=== PATIENT | male | born 2000 | race Caucasian/White ===

== ENCOUNTER 2025-04-21 18:28 | Emergency (ER) | payer OTHER, SELFPAY ==
[2025-04-21 18:50] VITALS: BP 133/75; PULSE 81; RESP 18; TEMP 36.6; O2SAT 100
--- NOTE | 2025-04-21 19:16 | ED.GENADULT ---
HPI - General Adult General Chief complaint: Back Pain/Injury Stated complaint: Back Pain Time Seen by Provider: 04/21/25 19:16 Source: patient, RN notes reviewed and old records reviewed Mode of arrival: ambulatory Limitations: no limitations History of Present Illness HPI narrative: 24-year-old male presents to the [facility] with back pain for 2 years if he stands too long and right shoulder pain whenever he does a lot of repetitive motion. Patient reports he has had generalized back pain for 2 years if he stands too long at work. Denies any trauma. No bruising, swelling noted. No rashes. No midline tenderness. No loss or retention of bowel or bladder. Patient states that he was working today when he started feeling soreness in the lateral shoulder, reports doing a lot of repetitive motion. Denies any trauma. No bruising or swelling noted. Has full range of motion. Positive radial pulse. 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 Full range of motion of you elbow and wrist. Has not seek medical attention nor has taken anything for his discomfort over the last 2 years for his back Onset (ago): year(s) (2) Treatments prior to arrival: none Related Data Allergies Allergy/AdvReac Type Severity Reaction Status Date / Time No Known Allergies Allergy Verified 04/21/25 18:54 Review of Systems Review of Systems: All systems reviewed & are unremarkable except as noted in HPI and below Constitutional: Constitutional: Reports no additional constitutional complaints Musculoskeletal: Musculoskeletal: Reports as per HPI, Reports back pain, Reports arthralgias, Denies joint swelling, Denies neck pain and Denies numbness Integumentary/Breasts: Skin/Breast: Reports system reviewed and no additional complaints, except as docu PMFSH Comments At the time of my signature, I reviewed and agree with the nursing past medical, surgical, social, and family history. There is no relevant family history pertinent to the patient complaint. Exam Const: General: cooperative, healthy appearing, comfortable, no acute distress, well developed, alert and well nourished Nutritional Appearance: well nourished and obese Orientation/consciousness: patient oriented x3 Limitations: no limitations HENMT: Head: normal to inspection Eyes: General: appearance normal, both eyes and all related structures Alignment and Position: alignment normal Neck: Neck: normal visual inspection, full ROM, no lymphadenopathy and no meningeal signs Chest: Chest palpation & inspection: normal inspection of the chest Resp: Effort & Inspection: normal respiratory effort and able to speak in complete sentences Auscultation: clear to auscultation bilaterally, no crackles, no rales, no rhonchi and no wheezes Cardio: Rate: regular rate Back/Spine/Pelvis: Back: no CVA tenderness, No erythema, No warmth, No ecchymosis and No back tenderness Cervical Spine: normal cervical lordosis, cervical ROM normal, No cervical muscular tenderness and No Cervical spine tenderness Thoracic/Lumbar Spine: thoracic and lumbar spine normal to inspection, No paraspinal muscle tenderness, No thoracic spinal tenderness and No lumbar spinal tenderness Skin: General skin exam: normal color and no rashes or lesions noted Neuro: General: patient oriented x3, gait normal, moves all extremities and no meningeal signs Cognition (Neuro): normal cognition Speech: normal speech Gait exam (Neuro): Normal gait present Extrem: General: normal to inspection, full ROM, capillary refill normal and normal gait Right upper extremity: shoulder/upper arm tenderness and normal ROM; no swelling, no abrasions, no lacerations, no ecchymosis, no crepitus, no foreign bodies, no penetrating wound, no deformity and no unusual warmth, elbow/forearm normal to inspection and normal ROM; no tenderness, wrist normal to inspection and normal ROM; no tenderness and Extremity exam: right hand normal to inspection, normal capillary refill, vascular exam radial pulse present and normal capillary refill, normal ROM of fingers and no swelling; no tenderness and no ecchymosis Psych: Appearance: grossly normal and well kempt Mental Status: mental status grossly normal Speech and movement: Normal speech and movement present and Clear speech present Affect: normal affect Attitude: cooperative Course Course Level of Care: Express Care Visit Vital Signs Vital signs: Vital Signs Temperature 97.9 F 04/21/25 18:50 Pulse Rate 81 04/21/25 18:50 Respiratory Rate 18 04/21/25 18:50 Blood Pressure 133/75 04/21/25 18:50 Pulse Oximetry 100 04/21/25 18:50 Oxygen Delivery Room Air 04/21/25 18:50 Temperature 97.9 F 04/21/25 18:50 Pulse Rate 81 04/21/25 18:50 Respiratory Rate 18 04/21/25 18:50 Blood Pressure 133/75 04/21/25 18:50 Pulse Oximetry 100 04/21/25 18:50 Oxygen Delivery Room Air 04/21/25 18:50 Reviewed Medical Decision Making MDM Narrative Medical decision making narrative: Patient sitting in exam room. Patient is nontoxic, vitals are stable. Patient presents with 2 years of back pain if he stands too long at work. Denies any injury. No loss retention of bowel or bladder. No numbness or tingling in extremities. No midline tenderness. Walks with a normal gait. Patient also reports that today he was doing a lot of repetitive motion and started with a pain in the lateral shoulder, no trauma. No bruising or swelling noted. No x-rays are indicated at this time, no trauma. Patient appropriate for outpatient treatment with close follow-up Discharge instructions reviewed with patient, as well as provided in writing per nursing staff. The instructions also include specific and strict return/GO TO THE ER as well as f/u information. All questions have been answered, and the patient deny any further questions with discharge and discharge plan. Some parts of this dictation were generated by voice recognition software and may contain typographical and/or grammatical inaccuracies. Differential Diagnosis Differential Diagnosis: Chronic back pain, tendinitis, arthritis Medical Records Medical records reviewed: Yes I reviewed the external patient's medical records. Vital Signs Vital Signs: Vital Signs Temperature 97.9 F 04/21/25 18:50 Pulse Rate 81 04/21/25 18:50 Respiratory Rate 18 04/21/25 18:50 Blood Pressure 133/75 04/21/25 18:50 Pulse Oximetry 100 04/21/25 18:50 Oxygen Delivery Room Air 04/21/25 18:50 Temperature 97.9 F 04/21/25 18:50 Pulse Rate 81 04/21/25 18:50 Respiratory Rate 18 04/21/25 18:50 Blood Pressure 133/75 04/21/25 18:50 Pulse Oximetry 100 04/21/25 18:50 Oxygen Delivery Room Air 04/21/25 18:50 Reviewed Lab Data Lab results reviewed: Yes I reviewed the patient's lab results. Labs: Reviewed Critical Care Time Critical Care Time Critical Care Time: No Discharge Plan Discharge Clinical Impression: Biceps tendinitis of right shoulder, Chronic back pain Patient Disposition: Home Condition: Stable Instructions: Tendinitis (ED), Chronic Back Pain (DC), Lower Back Exercises (ED) Additional Instructions: Take ibuprofen as directed to decrease inflammation and to help pain. Take Baclofen (muscle relaxer) as directed. Do not drink, drive, operate machinery, or do anything dangerous while taking this medication Exercise:Combine aerobic exercise, like walking or swimming, with specific exercises to keep the muscles in your back and abdomen strong and flexible. Proper Lifting:Be sure to lift heavy items with your legs, not your back. Do not bend over to pick something up. Keep your back straight and bend at your knees. Weight:Maintain a healthy weight. Being overweight puts added stress on your lower back. Avoid Smoking:Both the smoke and the nicotine cause your spine to age faster than normal. Proper Posture:Good posture is important for avoiding future problems. A therapist can teach you how to safely stand, sit, and lift. Use warm moist heat to help with pain. Using topical such as Biofreeze, Shant-Bean or Aspercreme can also help Follow up with Primary provider in 2-3 days, This may become a chronic condition and they will be the one to help manage your pain and order additional testing. A list of primary care providers has been given to you Go to the nearest ER if you develop problems with bladder/bowel function, weakness or loss of feeling in one or both of your legs. Patient Language: Turkmen Prescriptions: New baclofen 10 mg tablet 10 mg PO TID PRN (Reason: muscle pain) Qty: 10 0RF Follow-up/Referrals: PHYSICIAN,HELP DESK TECHNICIAN [Primary Care Provider, Internal Medicine] Stand Alone Forms: Work/School Release IP Time of Disposition: 19:23
== END 2025-04-21 19:28 | disposition home or self-care (01) ==
PROVIDERS: Emergency Provider Nurse Practitioner
DX: M75.21 Bicipital tendinitis, right shoulder (principal); M54.9 Dorsalgia, unspecified; G89.29 Other chronic pain
CPT/HCPCS: 99213; G0463

== ENCOUNTER 2025-06-09 16:55 | Emergency (ER) | payer OTHER, SELFPAY ==
--- OUTSIDE RECORDS SUMMARY | 2025-06-09 16:59 | XMS_ITS | Patient Health Record ---
Author Organization [facility] Address 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 Name Role Phone Mario Granger Primary Care Provider [phone] Allergies Allergen (clinical drug ingredient) Drug/Non Drug Allergy documented on EMR Reaction Allergy Type Onset Date Status Shellfish (FN) Shellfish-derived Products hives Drug Allergy Active Reason For Referral No Information Immunizations Vaccine Route Administration Date Status Comme nts FLU VAC NO PRSV 4 SANTOS 6 MOS - 18 YRS IM Intramuscular 08/08/2020 Administered Social History Tobacco Use: Social History Observation Description Date Details (start date - stop date) Never Smoker NA - NA Sex Assigned At : Social History Observation Description Sex Assigned At Male Tobacco Use/Smoking Question Answer Notes Are you a: never smoker Alcohol Screen (Audit-C) Question Answer Notes Did you have a drink containing alcohol in the p ast year? No Points 0 Interpretation Negative Tobacco use other than smoking: Question Answer Notes Are you an other tobacco user? No SBIRT (2018 Edition) Question Answer Notes Patient refused/declined SBIRT screening at this time? No How many times in the past y ear have you used an illegal drug or used a prescription medication for non-medical reasons? 0 3. How often do you have five or more drinks on one occasion? Never 2. How many drinks containin g alcohol do you have on a typical day when you are drinking? 1 or 2 1. How often do you have a drink containing alco hol? Monthly or less Problems Problem Type SNOMED Code ICD Code Onset Dates Problem Status W/U Status Risk Notes Problem Obesity due to excess calories (097091277) Other obesity due to excess calories (E66.09) Active confirmed Problem Edema (963650274) Edema, unspecified type (R60.9) Active confirmed Problem Body mass index 30+ - obesity (349432097) Body mass index [BMI] 30.0-30.9, adult (Z68.30) Active confirmed Plan Of Treatment Pending Test Test Name Order Date Gonorrhoea /Chlamydia 08/08/2020 Insurance Providers Payer Name Payer Address Payer Phone Subscriber Number Group Number Insured Name Patient Relationship to Insured Coverage Start Date Coverage End Date DO NOT USE Self Pay No Proof -100% (Inacti ve 2022) [id number] [place] [phone] Carson Mack Self - patient is the insured Medical (General) History Medical History History ICD Code asthma Surgical History Surgery Date(Month/Year) foot surgery bilateral tendon repair
[2025-06-09 17:00] VITALS: BP 130/64; PULSE 89; RESP 20; TEMP 36.6; O2SAT 98
--- NOTE | 2025-06-09 19:44 | ED_ITS ---
HPI - General Adult General Chief complaint: Unspecified Stated complaint: needs work note Time Seen by Provider: 06/09/25 17:14 Source: patient and RN notes reviewed Mode of arrival: ambulatory Limitations: no limitations History of Present Illness HPI narrative: 24-year-old male patient presents today requesting a note to return work. He was sent home from work today after he became dizzy with sweats. Patient states that this occurred because he became overheated in part of the building he worked today. States once he got outside, cooled down and was able to eat his symptoms resolved completely. He currently has no residual symptoms and would like to return to work tomorrow. Related Data Home Medications ?Medication ?Instructions ?Recorded ?Confirmed ?Last Taken ?Type No Home Medications 06/09/25 06/09/25 U nknown History Allergies Allergy/AdvReac Type Severity Reaction Status Date / Time No Known Allergies Allergy Verified 06/09/25 16:57 PMFSH Comments At time of signature, I have reviewed and agree with nursing past medical, surgical, social and family history unless otherwise noted. Please see nursing chart for further information. There is no relevant family history pertinent to the presenting complaint Exam Narrative: GENERAL: Well-appearing, well-nourished, and in no acute distress. HEAD: Normocephalic, atraumatic. EYES: EOMI. No redness or drainage. Conjunctivae normal. ENT: Mucous membranes pink and moist. Nares clear. No rhinorrhea. TMs normal bilaterally. Throat normal. Uvula midline. NECK: Normal AROM. CHEST: No respiratory distress. Clear to auscultation. HEART: Regular rate and rhythm. No murmur appreciated. Normal peripheral pulses. ABDOMEN: Soft, nontender, nondistended, normal active bowel sounds. EXTREMITIES: Normal range of motion. No edema. SKIN: Warm, dry, no rash. Capillary refill normal. Normal skin turgor. NEURO: No focal deficits. Alert and oriented x3. Gait steady. PSYCH: Normal affect. No signs of depression or anxiety. Course Course Level of Care: [facility] Care Visit Vital Signs Vital signs: Vital Signs Temperature 97.9 F 06/09/25 17:00 Pulse Rate 89 06/09/25 17:00 Respiratory Rate 20 06/09/25 17:00 Blood Pressure 130/64 06/09/25 17:00 Pulse Oximetry 98 06/09/25 17:00 Oxygen Delivery Room Air 06/09/25 17:00 Temperature 97.9 F 06/09/25 17:00 Pulse Rate 89 06/09/25 17:00 Respiratory Rate 20 06/09/25 17:00 Blood Pressure 130/64 06/09/25 17:00 Pulse Oximetry 98 06/09/25 17:00 Oxygen Delivery Room Air 06/09/25 17:00 Reviewed Medical Decision Making MDM Narrative Medical decision making narrative: 24-year-old male patient presents today requesting a note to return work. He was sent home from work today after he became dizzy with sweats. Patient states that this occurred because he became overheated in part of the building he worked today. States once he got outside, cooled down and was able to eat his symptoms resolved completely. He currently has no residual symptoms and would l [place] to return to work tomorrow. Physical exam normal. Vital signs stable. Patient will be provided a note to return to work tomorrow. Anticipatory guidance given. Differential Diagnosis Differential Diagnosis: Heat exhaustion, viral syndrome, dehydration Vital Signs Vital Signs: Vital Signs Temperature 97.9 F 06/09/25 17:00 Pulse Rate 89 06/09/25 17:00 Respiratory Rate 20 06/09/25 17:00 Blood Pressure 130/64 06/09/25 17:00 Pulse Oximetry 98 06/09/25 17:00 Oxygen Delivery Room Air 06/09/25 17:00 Temperature 97.9 F 06/09/25 17:00 Pulse Rate 89 06/09/25 17:00 Respiratory Rate 20 06/09/25 17:00 Blood Pressure 130/64 06/09/25 17:00 Pulse Oximetry 98 06/09/25 17:00 Oxygen Delivery Room Air 06/09/25 17:00 Critical Care Time Critical Care Time Critical Care Time: No Discharge Plan Discharge Clinical Impression: Heat exhaustion Qualifiers: Encounter type: initial encounter Qualified Code(s): T67.5XXA - Heat exhaustion, unspecified, initial encounter Patient Disposition: Home Condition: Stable Instructions: Heat Exhaustion (ED) Additional Instructions: Make sure you are drinking plenty of fluids at work if you feel that you are getting overheated. Follow-up with your PCP with any additional concerns. Patient Language: Malay Prescriptions: No Action No Home Medications Follow-up/Referrals: PHYSICIAN,LENS ASSORTER [Primary Care Provider, Internal Medicine] Stand Alone Forms: Work/School Release IP Time of Disposition: 17:22
== END 2025-06-09 17:28 | disposition home or self-care (01) ==
PROVIDERS: Emergency Provider Nurse Practitioner
DX: T67.5XXA Heat exhaustion, unspecified, initial encounter (principal); X30.XXXA Exposure to excessive natural heat, initial encounter; Y99.0 Civilian activity done for income or pay; J45.909 Unspecified asthma, uncomplicated
CPT/HCPCS: 99211; G0463